=== PATIENT | male | born 1965 | race Caucasian/White ===

== ENCOUNTER → 2019-02-21 | Outpatient (CLI) | payer BC | LOC: COL.RAD 14:34 | DX: M48.061 Spinal stenosis, lumbar region without neurogenic claudication (principal); M41.9 Scoliosis, unspecified; R20.9 Unspecified disturbances of skin sensation; M51.26 Other intervertebral disc displacement, lumbar region ==

== ENCOUNTER 2020-10-01 15:00 | Outpatient (RCR) | payer OTHER | END 2020-11-30 | disposition home or self-care (01) | LOC: MKS.ESL.PT | DX: M25.552 Pain in left hip (principal) ==